=== PATIENT | female | born 1975 | race Caucasian/White ===

== ENCOUNTER 2025-04-18 11:38 | Emergency (ER) | payer BC ==
[~2025-04-18] VITALS: Ht 165.1 cm; Wt 69.8 kg
[2025-04-18 11:42] VITALS: BP 144/90; PULSE 89; TEMP 97.9; O2SAT 98
--- NOTE | 2025-04-18 12:09 | RADIOLOGY REPORT ---
CLINICAL INFORMATION: 49 years old, Female; Shoulder Pain. TECHNIQUE: 3 views of the left shoulder were obtained. COMPARISON: None FINDINGS: No acute fracture or dislocation. No significant arthropathy. Overlying soft tissues are g rossly unremarkable. IMPRESSION: 1. No evidence of acute bony abnormality.
[2025-04-18] MEDS: dexamethasone sod phosphate 10mg/ml inj IM STA (12:31)
[2025-04-18 12:32] VITALS: RESP 16
[2025-04-18] MEDS: ketorolac trometh 30MG/ML vial 30 MG/ML VIAL IM ONE (12:32)
--- NOTE | 2025-04-18 13:23 | Physician Documentation ---
History of Present Illness ~ Chief Complaint: Shoulder pain Stated Complaint: FALL INJ L SHOULDER Time Seen by MD: 12:00 HPI 49-year-old female reports a chief complaint of left shoulder pain. Patient states that she sustained a fall yesterday on her left shoulder and states she has pain now to the anterior and lateral deltoid. He was able to raise her shoulder but states it was painful. Denies numbness tingling loss of sensation. Currently not taking medications therapy has been in symptoms. No other complaints at this time Tetanus within 5 years?: No Medication Reconciliation Allergies: Coded Allergies: acetaminophen (Verified Allergy, Unknown, 04/18/25) hydrocodone (Verified Allergy, Unknown, 04/18/25) Uncoded Allergies: CIPROFLACIN (Allergy, Unknown, 04/18/25) Scheduled PRN Oxycodone HCl/Acetaminophen (Percocet 10-325 mg Tablet), 1 TAB PO QID PRN PRN for breakthrough pain (4-10) Physical Exam Vital Signs: Temperature: 97.9, Source: Temporal, Heart Rate: 89, Respiratory Rate: 16, BP: 144/90, Pulse Oximetry: 98, Weight: 69.750 Physical Exam General: Well developed, well nourished, no distress. HEENT: Atraumatic, normal conjunctiva, moist mucous membranes. Neck: Full range of motion, supple. Respiratory: Lungs clear, no respiratory distress. Chest: No accessory muscle use, nontender. Cardiovascular: Regular rate and rhythm. Gastrointestinal: Soft, nontender, nondistended. Bowel sounds present. Extremities: Left shoulder exam: Negative for permanents gross deformities. Negative for overlying erythema, ecchymosis signs of infection. Positive for tenderness to anterior deltoid as well as to the lateral deltoid. Forward flexion from 0-180. Positive Neer's, positive Marquette's, negative empty can, positive peel Back: No midline tenderness, no CVA tenderness. Neurologic: Oriented x4. Distal gross motor and sensory intact all four extremities. Moves all 4 extremities spontaneously. Psychiatric: Normal mood and affect. Skin: Normal color, warm and dry. No edema, no ecchymosis Progress Results/Orders Results/Orders Completed Orders - TRISTEN GARDNER Ketorolac Trometh 30mg/Ml Vial (Toradol (04/18/25 12:20) Dexamethasone Inj (Decadron 10mg/Ml Inj) (04/18/25 12:18) Medications Received in ER Medications (Trade) Dose Ordered Sig/Genny Route PRN Reason Start Time Stop Time Status Last Admin Dose Admin (Toradol inj. 30mg/ml) 30 mg ONCE ONCE IM 04/18/25 12:20 04/18/25 12:21 DC 04/18/25 12:32 30 MG (Decadron 10mg/ ml inj) 10 mg ONCE STAT IM 04/18/25 12:18 04/18/25 12:19 DC 04/18/25 12:31 10 MG Vital Signs 04/18/25 04/18/25 11:42 12:32 Temp 97.9 Pulse 89 Resp 15 16 B/P (MAP) 144/90 Pulse Ox 98 Medical Decision Making Additional info obtained from: old records ([facility] [place]) Findings After detailed discussion and joint medical decision-making, diagnostic and imaging results were discussed with the patient. At this time patient we will be given medication for pain. Patient appears that she has symptoms consistent with a rotator cuff syndrome patient will be discharged with instructions to follow up with Orthopedics. ER precautions were given. Patient is stable upon discharge. I did interpret x-rays myself in lieu of evidence of fractures dislocations or lytic lesions. All patient questions answered to satisfaction Differential Dx:Considerations: Include: other (Fracture, contusion, strain, calcific tendonitis, rotator cuff syndrome) Departure Disposition: HOME / SELF CARE / HOMELESS Impression: Primary Impression: Shoulder pain Additional Impressions: Tendinitis of shoulder Shoulder joint pain Condition: Stable Discharge Instructions: Shoulder Pain, [id number], Shoulder Pain Additional Instructions: Based on your physical exam and your chief complaint and your mechanism injury, have a high suspicion for rotator cuff tear and I would advise you obtain a MRI from his primary care and referral to Orthopedics as soon as possible. Referrals: NO PRIMARY CARE PROVIDER (PCP) Prescriptions Meloxicam* (Meloxicam*) 7.5 Mg Tablet 1 TAB PO DAILY for 30 Days, #30 TAB 0 Refills Prov: TRISTEN GARDNER 04/18/25 Prednisone* (Prednisone*) 20 Mg Tablet 1 TAB PO Q12H for 5 Days, #10 TAB Prov: TRISTEN GARDNER 04/18/25 Oxycodone HCl/Acetaminophen (Percocet 10-325 mg Tablet) 10 Mg-325 Mg Tablet 1 TAB PO QID PRN PRN for breakthrough pain (4-10) for 5 Days, #20 TAB 0 Refills Prov: TRISTEN GARDNER 04/18/25 Education Educated: Patient Educated regarding: diagnosis, treatment Signature Scribe Signature: none used Attestation: Scribed for Tristen Gardner by Tristen GARNICA . 04/18/25 13:25 TRISTEN GARDNER April 18, 2025 13:23
[2025-04-18] MEDS ORDERED: OXYC-150 PO (13:36)
[2025-04-18] MEDS ORDERED: PRED20TA PO (13:52)
[2025-04-18] MEDS ORDERED: MELO-100 PO (13:52)
== END 2025-04-18 14:00 | disposition home or self-care (01) ==
LOC: ER 11:40
DX: M77.8 Other enthesopathies, not elsewhere classified (principal); M25.512 Pain in left shoulder; Z88.5 Allergy status to narcotic agent; W18.39XA Other fall on same level, initial encounter; Y93.89 Activity, other specified; Y92.89 Other specified places as the place of occurrence of the external cause; Y99.8 Other external cause status
CPT/HCPCS: 73030; 96372; 99284; J1100; J1885